=== PATIENT | female | born 1995 | race Caucasian/White ===

== ENCOUNTER 2017-03-20 13:52 | Emergency (ER) | payer OTHER ==
[~2017-03-20] VITALS: Ht 165.1 cm; Wt 56.8 kg
[2017-03-20 13:56] VITALS: BP 149/94; PULSE 92; TEMP 99
== END 2017-03-20 15:28 | disposition home or self-care (01) ==
LOC: COL.ER 13:52
DX: S92.531A Displaced fracture of distal phalanx of right lesser toe(s), initial encounter for closed fracture (principal); W22.8XXA Striking against or struck by other objects, initial encounter

== ENCOUNTER 2019-04-13 02:01 | Emergency (ER) | payer SELFPAY ==
[~2019-04-13] VITALS: Ht 152.4 cm; Wt 54.5 kg
[2019-04-13] MEDS ORDERED: CLARITIN 1010 MG/TAB PO (02:05)
[2019-04-13] MEDS ORDERED: MULTI VITAMINS1 TAB PO (02:05)
[2019-04-13 02:06] VITALS: TEMP 98.2
[2019-04-13 02:21] LABS: BASO % 0.5 % (0.0-2.0); EOS # 0.2 (0.0-0.7); EOS % 2.6 % (0-4.0); GRAN # 5.2 (1.4-6.5); GRAN % 61.4 % (42.2-75.2); HEMATOCRIT 43.3 % (37.0-47.0); HEMOGLOBIN 14.6 g/dl (12.5-16.0); LYMPH # 2.3 (1.2-3.4); MEAN CELL VOLUME 92 fl (80.0-100.0); MEAN CORPUSCULAR HEMOGLOBIN 31 pg (27.0-31.0); MEAN CORPUSCULAR HGB CONC 34 g/dl (33.0-37.0); MEAN PLATELET VOLUME 9.2 fl (7.4-10.4); MONO # 0.7 (0.1-0.6); MONO % 8.3 % (1.7-9.3); PLATELET COUNT 290 K/mm3 (130-400); RED BLOOD COUNT 4.72 M/mm3 (4.10-5.30); REDCELL DISTRIBUTION WIDTH-CV 12.2 % (11.5-14.5)
[2019-04-13 02:41] LABS: CALCIUM 9.6 mg/dL (8.4-10.2); CREATININE, serum 0.75 (0.52-1.25); POTASSIUM 3.7 mmol/L (3.4-5.0)
[2019-04-13] MEDS ORDERED: FLEXERIL 1010 MG/TAB PO (03:24)
[2019-04-13 03:58] VITALS: BP 147/98; PULSE 78
== END 2019-04-13 03:55 | disposition home or self-care (01) ==
LOC: COL.ER 02:01
PROVIDERS: Emergency Medicine
DX: S13.4XXA Sprain of ligaments of cervical spine, initial encounter (principal); S23.3XXA Sprain of ligaments of thoracic spine, initial encounter; S20.219A Contusion of unspecified front wall of thorax, initial encounter; R40.2412 Glasgow coma scale score 13-15, at arrival to emergency department; V40.5XXA Car driver injured in collision with pedestrian or animal in traffic accident, initial encounter
CPT/HCPCS: J1885; J7030